=== PATIENT | female | born 1960 | race Caucasian/White ===

== ENCOUNTER → 2020-10-02 | Outpatient (CLI) | payer OTHER ==
[~2020-10-02] MED LIST: ADMELOG SO100 UNIT/1 SC; ADVAIR 250-501 EACH INH; AMARYL4 MG PO; AZULFIDINE500 MG PO; BASAGLAR K100 UNIT/1 SC; BAYER CHEWABLE81 MG PO; BENTYL 10MG CAP10 MG PO; CLOPIDOGREL75 MG PO; COMBIVENT0.074 GM/I INH; CRESTOR40 MG PO; FIBERCON625 MG PO; IMDUR ER TAB 3030 MG PO; LOPRESSOR 25 MG25 MG PO; LOVAZA1 GM PO; MAGNESIUM400 M2 PO; MECLIZINE HCL25 MG PO; MULTIVITAMINS1 EAC1 PO; PROBIOTIC1 EAC1 PO; PROTONIX40 MG PO; SYNTHROID 88 M88 MCG PO; ZOFRAN4 MG PO
== END ==
LOC: SLEEP-COR 10:52
DX: R00.2 Palpitations (principal); G47.33 Obstructive sleep apnea (adult) (pediatric); E66.9 Obesity, unspecified; Z72.821 Inadequate sleep hygiene
CPT/HCPCS: 95810

== ENCOUNTER → 2020-12-05 | Outpatient (CLI) | payer OTHER | LOC: KOH-I 12:46 | DX: I65.23 Occlusion and stenosis of bilateral carotid arteries (principal) | CPT/HCPCS: 93880 ==

== ENCOUNTER 2021-08-12 18:42 | Inpatient (IN) | payer OTHER ==
[~2021-08-12] VITALS: Ht 144.8 cm; Wt 94.8 kg
[2021-08-12 19:32] LABS: HEMOGLOBIN 15.5 gm/dl (12.3-15.3); RED BLOOD COUNT 5.34 M/UL (4.00-5.10); WHITE BLOOD COUNT 3.4 K/UL (4.5-11.0)
[2021-08-12 19:51] LABS: BUN/CREATININE RATIO 20 (0-10)
[2021-08-13] MEDS ORDERED: FOLIC ACID1 MG PO (00:10)
[2021-08-13] MEDS ORDERED: HYDROCHLOROTH12.5 MG PO (00:11)
[2021-08-13] MEDS ORDERED: VENTOLIN/PROVE0.5 ML INH (00:11)
[2021-08-13] MEDS ORDERED: LEVEMIR100 UNIT/1 SQ (00:12)
[2021-08-13] MEDS ORDERED: HUMALOG 10100 UNITS/ SC (00:19)
[2021-08-13 06:57] LABS: HEMOGLOBIN 14.2 gm/dl (12.3-15.3); RED BLOOD COUNT 4.9 M/UL (4.00-5.10); WHITE BLOOD COUNT 2.9 K/UL (4.5-11.0)
[2021-08-13 07:30] LABS: BUN/CREATININE RATIO 15 (0-10)
[2021-08-14 06:03] LABS: HEMOGLOBIN 13.8 gm/dl (12.3-15.3); RED BLOOD COUNT 4.8 M/UL (4.00-5.10)
[2021-08-14 06:26] LABS: WHITE BLOOD COUNT 3.8 K/UL (4.5-11.0)
[2021-08-14 06:38] LABS: BUN/CREATININE RATIO 23 (0-10)
[2021-08-15 07:43] LABS: HEMOGLOBIN 12.8 gm/dl (12.3-15.3); RED BLOOD COUNT 4.6 M/UL (4.00-5.10); WHITE BLOOD COUNT 4.2 K/UL (4.5-11.0)
[2021-08-15 08:27] LABS: BUN/CREATININE RATIO 21 (0-10)
--- NOTE | 2021-08-15 14:22 | NUR ---
1425: PATIENT GIVEN INCENTIVE SPIROMETRY AND INSTRUCTED ON USE. RETURN DEMONSTRATION NOTED, PATIENT ABLE TO PULL 1000 ML X 10 REP. COUGH ELICITED AND PATIENT TOLERATED WELL.
[2021-08-16 06:24] LABS: HEMOGLOBIN 13.1 gm/dl (12.3-15.3); RED BLOOD COUNT 4.52 M/UL (4.00-5.10); WHITE BLOOD COUNT 3.2 K/UL (4.5-11.0)
[2021-08-16 06:51] LABS: BUN/CREATININE RATIO 21 (0-10)
[2021-08-16] MEDS ORDERED: DECADRON6 MG PO (12:18)
[2021-08-16] MEDS ORDERED: VITAMIN C 500500 MG PO (12:18)
[2021-08-16] MEDS ORDERED: CEFUROXIME500 MG PO (12:18)
--- NOTE | 2021-08-16 12:43 | NUR ---
1245: PER PHYSICIAN ORDER, PULSE OX GIVEN TO PATIENT FOR DISCHARGE MONITORING. PATIENT INSTRUCED ON USE AND NORMAL PARAMETERS, WELL WHEN TO SEEK MEDICAL ATTENTION FOW LOW SATURATIONS. RETURN DEMONSTRATION NOTED AND VERBAL UNDERSTANDING OF INSTRUCTION WELL.
== END 2021-08-16 16:07 | disposition home or self-care (01) | DRG 871 ==
LOC: ER1 18:42 → MED SURG 4 20:59 → PROG CARE 20:59 → CDU 20:59 → PROG CARE 08-13 → MED SURG 4 08-13 14:00
PROVIDERS: Emergency Medicine; Internal Medicine; ADMIT Internal Medicine
PROC: XW033E5 Introduction of Remdesivir Anti-infective into Peripheral Vein, Percutaneous Approach, New Technology Group 5 (ICD-10-PCS; 2021-08-12)
PROC: 8E0ZXY6 Isolation (ICD-10-PCS; principal; 2021-08-13)
PROC: 3E0333Z Introduction of Anti-inflammatory into Peripheral Vein, Percutaneous Approach (ICD-10-PCS; 2021-08-13)
DX: A41.89 Other specified sepsis (principal); U07.1 COVID-19; J12.82 Pneumonia due to coronavirus disease 2019; J96.01 Acute respiratory failure with hypoxia; I50.32 Chronic diastolic (congestive) heart failure; E87.1 Hypo-osmolality and hyponatremia; Z68.42 Body mass index [BMI] 45.0-49.9, adult; R65.20 Severe sepsis without septic shock; E11.65 Type 2 diabetes mellitus with hyperglycemia; E11.40 Type 2 diabetes mellitus with diabetic neuropathy, unspecified; I11.0 Hypertensive heart disease with heart failure; E03.9 Hypothyroidism, unspecified; E86.0 Dehydration; Z96.652 Presence of left artificial knee joint; E87.6 Hypokalemia; K76.0 Fatty (change of) liver, not elsewhere classified; E11.51 Type 2 diabetes mellitus with diabetic peripheral angiopathy without gangrene; T38.0X5A Adverse effect of glucocorticoids and synthetic analogues, initial encounter; I25.10 Atherosclerotic heart disease of native coronary artery without angina pectoris; Z95.1 Presence of aortocoronary bypass graft; Z79.4 Long term (current) use of insulin; Z79.01 Long term (current) use of anticoagulants; Z79.82 Long term (current) use of aspirin; Z98.42 Cataract extraction status, left eye; Z98.41 Cataract extraction status, right eye; Z85.828 Personal history of other malignant neoplasm of skin; Z98.51 Tubal ligation status; Z99.81 Dependence on supplemental oxygen
CPT/HCPCS: 36415; 36600; 71045; 80048; 80053; 82550; 82553; 82728; 82803; 82962; 83036; 83605; 83615; 83735; 83874; 83880; 84100; 84484; 85025; 85027; 85379; 86140; 87040; 93005; 94640; 94760; 99285; C9113; J0696; J1100; J1650; J2060; J7030; Q9967

== ENCOUNTER → 2022-01-01 | Outpatient (CLI) | payer OTHER ==
[~2022-01-01] MED LIST changes: +CEFUROXIME500 MG PO; +DECADRON6 MG PO; +FOLIC ACID1 MG PO; +HUMALOG 10100 UNITS/ SC; +HYDROCHLOROTH12.5 MG PO; +LEVEMIR100 UNIT/1 SQ; +VENTOLIN/PROVE0.5 ML INH; +VITAMIN C 500500 MG PO
== END ==
LOC: EXRD 12:02
DX: I65.23 Occlusion and stenosis of bilateral carotid arteries (principal)
CPT/HCPCS: 93880

== ENCOUNTER → 2022-01-02 | Outpatient (CLI) | payer OTHER | LOC: HEART 5 08:26 | DX: I20.9 Angina pectoris, unspecified (principal) | CPT/HCPCS: 78452; A9502; J2785 ==

== ENCOUNTER → 2022-01-05 | Outpatient (CLI) | payer OTHER | LOC: CT 14:20 | DX: I65.23 Occlusion and stenosis of bilateral carotid arteries (principal) | CPT/HCPCS: 70498; Q9967 ==

== ENCOUNTER → 2022-01-18 | Outpatient (CLI) | payer OTHER ==
[2022-01-18 11:43] LABS: HEMOGLOBIN 13.7 gm/dl (12.3-15.3); RED BLOOD COUNT 5.02 M/UL (4.00-5.10); WHITE BLOOD COUNT 9.1 K/UL (4.5-11.0)
== END ==
LOC: LAB 10:51
PROVIDERS: Internal Medicine Interventional Cardiology
DX: I25.10 Atherosclerotic heart disease of native coronary artery without angina pectoris (principal); R94.39 Abnormal result of other cardiovascular function study; F41.9 Anxiety disorder, unspecified; I65.29 Occlusion and stenosis of unspecified carotid artery; R42 Dizziness and giddiness; I10 Essential (primary) hypertension; E78.00 Pure hypercholesterolemia, unspecified; R00.2 Palpitations; K21.9 Gastro-esophageal reflux disease without esophagitis
CPT/HCPCS: 36415; 80048; 85025; 85610; 85730; 93005

== ENCOUNTER → 2022-02-09 | Outpatient (CLI) | payer OTHER ==
[~2022-02-09] MED LIST changes: +DAILY VALUE1 EACH PO; +GLIMEPIRIDE4 MG PO; +HUMALOG100 UNIT/2 SC; +ISOSORBIDE MONO30 MG PO; +LEVOTHYROXINE100 MC2 PO; +METOPROLOL TART25 MG PO; +OMEGA 3 1,0001 EACH PO; +PROAIR HFA8.5 GM INH; +PROBIOTIC & AC1 EACH PO
== END ==
LOC: CT 10:53
DX: I25.10 Atherosclerotic heart disease of native coronary artery without angina pectoris (principal); I65.29 Occlusion and stenosis of unspecified carotid artery; Z95.1 Presence of aortocoronary bypass graft
CPT/HCPCS: 71275; Q9967

== ENCOUNTER → 2022-03-14 | Outpatient (CLI) | payer OTHER | LOC: HEART 5 09:01 | DX: R07.9 Chest pain, unspecified (principal); R00.2 Palpitations; R06.02 Shortness of breath; I08.1 Rheumatic disorders of both mitral and tricuspid valves; I27.20 Pulmonary hypertension, unspecified | CPT/HCPCS: 93306 ==

== ENCOUNTER → 2022-06-13 | Outpatient (CLI) | payer MEDICARE, OTHER | LOC: KOH-I 08:45 | DX: R10.9 Unspecified abdominal pain (principal) | CPT/HCPCS: 74176 ==